=== PATIENT | male | born 1950 | race Caucasian/White ===

== ENCOUNTER 2019-12-20 12:47 | Emergency (ER) | payer MEDICARE, MEDICAID ==
[~2019-12-20] VITALS: Ht 182.9 cm; Wt 63.6 kg
--- NOTE | 2019-12-20 13:16 | EKG ---
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
[2019-12-20 13:18] LABS: BASO # 0.1 x10^3/uL (0.0-0.2); BASO % 2 % (0-3); EOS # 0.1 x10^3/uL (0.0-0.7); EOS % 2 % (0-3); HEMATOCRIT 34.5 % (39.0-53.0); HEMOGLOBIN 11.7 g/dL (13.0-17.5); LYMPH # 0.6 x10^3/uL (1.0-4.8); LYMPH % 13 % (24-48); MEAN CORPUSCULAR HEMOGLOBIN 34 pg (25-35); MEAN CORPUSCULAR HGB CONC 34 g/dL (31-37); MEAN CORPUSCULAR VOLUME 99 fL (79-100); MONO # 0.6 x10^3/uL (0.0-1.1); MONO % 15 % (0-9); NEUT # 2.8 x10^3uL (1.8-7.7); NEUT % 68 % (31-73); PLATELET COUNT 88 x10^3/uL (140-400); RED BLOOD COUNT 3.49 x10^6/uL (4.30-5.70); WHITE BLOOD COUNT 4.2 x10^3/uL (4.0-11.0)
--- NOTE | 2019-12-20 13:19 | RAD ---
CT head and cervical spine without contrast History: Fall Technique: Noncontrast CT imaging was performed of the head and cervical spine. Multiplanar reconstruction images are submitted. Exposure: One or more of the following individualized dose reduction techniques were utilized for this examination: 1. Automated exposure control 2. Adjustment of the mA and/or kV according to patient size 3. Use of iterative reconstruction technique. Head CT Comparison: None Findings: There is motion degradation. There is some asymmetric hyperdensity of the right basal ganglia about 0.6 cm in size. There is focus of lower density extending near the cortical surface of the right parasagittal parietal occipital lobes. There is also area of lower density of the left temporal lobe. Ventricular size is considered within normal limits. Visualized paranasal sinuses are aerated. Mastoid air cells are aerated. No acute calvarial abnormality is identified. Impression: 1. Small focus of hyperdensity of the right basal ganglia is favored to be due to asymmetric calcification rather than hemorrhage although could be followed up to assess stability. There is focus of lower density extending to the cortical surface of the right parietal occipital lobes, subacute infarct possible although could be chronic, better assessed with MRI or short-term follow-up CT. There is also focus of lower density of the left temporal lobe, possibly chronic versus late subacute infarct. Cervical spine CT Comparison: None Findings: No acute cervical spine fracture is identified. Cervical vertebral body stature is overall maintained. There is superior endplate concavity of T2 without osseous retropulsion, difficult to accurately determine age although favored to be older. There is accentuation of lordotic curvature cervical spine. There are minimal disc osteophyte complexes greatest C5-6 and C6-7. There is moderate to severe degenerative disc disease greater posteriorly C4-5 through C6-7 and to lesser degree at C3-4 and C2-3. There is likely borderline central canal stenosis about 10 mm at C5-6. There is multilevel cervical facet degenerative change, also degree of uncovertebral degenerative change. There is moderate to severe narrowing of the right C4-5 and C6-7 neural foramina, severe narrowing on the right at C5-6, also moderate to severe narrowing on the left at C5-6 and C6-7. There is mild levoscoliosis. There is small nonspecific lytic focus of the right C5 vertebral body about 0.4 cm otherwise too small to accurately characterize. There is atherosclerotic calcification of the left carotid artery in the neck. Impression: 1. No acute cervical spine fracture is identified. 2. There is multilevel degenerative disc disease. There is spondylosis greatest at C5-6 and C6-7. 3. There is multilevel cervical neural foramina compromise due to facet and uncovertebral degenerative change. Critical results were discussed with Dr. Roberts at 12/20/2019 1:13 PM. Electronically signed by: Leif Gibbs MD (12/20/2019 1:16 PM) [id number]
[2019-12-20 13:28] LABS: CALCIUM 8.8 mg/dL (8.5-10.1); CREATININE 0.9 mg/dL (0.7-1.3); GFR 83.4; POTASSIUM 3.3 mmol/L (3.5-5.1)
--- NOTE | 2019-12-20 13:31 | PHYS DOC ---
Past History Past Medical History: A-Fib, CVA, Liver Disease, Other Additional Past Medical Histor: esophageal bleed; prostate disease Additional Past Surgical Histo: to stop esophageal bleed Alcohol Use: Sober Additional Alcohol Information: no drink for 5 yrs General Adult EDM: Chief Complaint: HEAD INJURY/TRAUMA HPI: HPI: 69-year-old male presents after syncope and fall. The patient was shopping at [employer] he tells me he started the feel dizzy and he not exactly sure what happened after that. He was unaware that he became completely unconscious. He was a little fuzzy on his first memory when he woke up. He was noted to be repeating himself and not making a lot of sense when he first woke up. They were concerned about hemorrhage or stroke so EMS was called. EMS gave a similar report that he was repeating himself and not fully answering their questions. He was able to speak without difficulty. He was put in cervical precautions and brought to the emergency room. At this time, he denies any pain. He is quite chatty but appropriate. He denies fever chills. History of atrial fibrillation. Review of Systems: Review of Systems: Constitutional: Denies fever or chills Eyes: Denies change in visual acuity HENT: Denies nasal congestion or sore throat Respiratory: Denies cough or shortness of breath Cardiovascular: Denies chest pain or edema GI: Denies abdominal pain, nausea, vomiting, bloody stools or diarrhea : Denies dysuria Musculoskeletal: Denies back pain or joint pain Integument: Denies rash Neurologic: Head trauma. Denies headache, focal weakness or sensory changes Endocrine: Denies polyuria or polydipsia Lymphatic: Denies swollen glands Psychiatric: Denies depression or anxiety Heart Score: Risk Factors: Risk Factors: DM, Current or recent (<one month) smoker, HTN, HLP, family history of CAD, obesity. Risk Scores: Score 0 - 3: 2.5% MACE over next 6 weeks - Discharge Home Score 4 - 6: 20.3% MACE over next 6 weeks - Admit for Clinical Observation Score 7 - 10: 72.7% MACE over next 6 weeks - Early Invasive Strategies Allergies: Allergies: Allergies Coded Allergies Type Severity Reaction Last Updated Verified No Known Drug Allergies 12/20/19 No Physical Exam: PE: Constitutional: Well developed, well nourished, no acute distress, non-toxic appearance. [] HENT: Normocephalic, atraumatic, bilateral external ears normal, oropharynx moist, no oral exudates, nose normal. [] Eyes: PERRLA, EOMI, conjunctiva normal, no discharge. [] Neck: In a cervical collar, no tenderness [] Cardiovascular: Heart rate 115, regular rhythm, no murmur [] Lungs & Thorax: Bilateral breath sounds clear to auscultation [] Abdomen: Bowel sounds normal, soft, no tenderness, no masses, no pulsatile ma sses. [] Skin: Warm, dry, no erythema, no rash. [] Back: No tenderness, no CVA tenderness. [] Extremities: No tenderness, no cyanosis, no clubbing, ROM intact, no edema. [] Neurologic: Alert and oriented X 3, normal motor function, normal sensory function, no focal deficits noted. [] Psychologic: Affect normal, judgement normal, mood normal. [] Current Patient Data: Labs: Laboratory Tests Test 12/20/19 12:57 12/20/19 13:04 Glucose (Fingerstick) 81 mg/dL (70-99) White Blood Count 4.2 x10^3/uL (4.0-11.0) Red Blood Count 3.49 x10^6/uL (4.30-5.70) L Hemoglobin 11.7 g/dL (13.0-17.5) L Hematocrit 34.5 % (39.0-53.0) L Mean Corpuscular Volume 99 fL (79-100) Mean Corpuscular Hemoglobin 34 pg (25-35) Mean Corpuscular Hemoglobin Concent 34 g/dL (31-37) Red Cell Distribution Width 14.0 % (11.5-14.5) Platelet Count 88 x10^3/uL (140-400) L Neutrophils (%) (Auto) 68 % (31-73) Lymphocytes (%) (Auto) 13 % (24-48) L Monocytes (%) (Auto) 15 % (0-9) H Eosinophils (%) (Auto) 2 % (0-3) Basophils (%) (Auto) 2 % (0-3) Neutrophils # (Auto) 2.8 x10^3uL (1.8-7.7) Lymphocytes # (Auto) 0.6 x10^3/uL (1.0-4.8) L Monocytes # (Auto) 0.6 x10^3/uL (0.0-1.1) Eosinophils # (Auto) 0.1 x10^3/uL (0.0-0.7) Basophils # (Auto) 0.1 x10^3/uL (0.0-0.2) Vital Signs: Vital Signs Date Time Temp Pulse Resp B/P (MAP) Pulse Ox O2 Delivery O2 Flow Rate FiO2 12/20/19 13:23 119 17 136/89 (105) 97 Room Air 12/20/19 12:56 97.5 EKG: EKG: Sinus tachycardia, rate 109, normal axis, no ST elevations or depressions. [] Radiology/Procedures: Radiology/Procedures: [] Impressions: CT head and cervical spine without contrast History: Fall Technique: Noncontrast CT imaging was performed of the head and cervical spine. Multiplanar reconstruction images are submitted. Exposure: One or more of the following individualized dose reduction techniques were utilized for this examination: 1. Automated exposure control 2. Adjustment of the mA and/or kV according to patient size 3. Use of iterative reconstruction technique. Head CT Comparison: None Findings: There is motion degradation. There is some asymmetric hyperdensity of the right basal ganglia about 0.6 cm in size. There is focus of lower density extending near the cortical surface of the right parasagittal parietal occipital lobes. There is also area of lower density of the left temporal lobe. Ventricular size is considered within normal limits. Visualized paranasal sinuses are aerated. Mastoid air cells are aerated. No acute calvarial abnormality is identified. Impression: 1. Small focus of hyperdensity of the right basal ganglia is favored to be due to asymmetric calcification rather than hemorrhage although could be followed up to assess stability. There is focus of lower density extending to the cortical surface of the right parietal occipital lobes, subacute infarct possible although could be chronic, better assessed with MRI or short-term follow-up CT. There is also focus of lower density of the left temporal lobe, possibly chronic versus late subacute infarct. Cervical spine CT Comparison: None Findings: No acute cervical spine fracture is identified. Cervical vertebral body stature is overall maintained. There is superior endplate concavity of T2 without osseous retropulsion, difficult to accurately determine age although favored to be older. There is accentuation of lordotic curvature cervical spine. There are minimal disc osteophyte complexes greatest C5-6 and C6-7. There is moderate to severe degenerative disc disease greater posteriorly C4-5 through C6-7 and to lesser degree at C3-4 and C2-3. There is likely borderline central canal stenosis about 10 mm at C5-6. There is multilevel cervical facet degenerative change, also degree of uncovertebral degenerative change. There is moderate to severe narrowing of the right C4-5 and C6-7 neural foramina, severe narrowing on the right at C5-6, also moderate to severe narrowing on the left at C5-6 and C6-7. There is mild levoscoliosis. There is small nonspecific lytic focus of the right C5 vertebral body about 0.4 cm otherwise too small to accurately characterize. There is atherosclerotic calcification of the left carotid artery in the neck. Impression: 1. No acute cervical spine fracture is identified. 2. There is multilevel degenerative disc disease. There is spondylosis greatest at C5-6 and C6-7. 3. There is multilevel cervical neural foramina compromise due to facet and uncovertebral degenerative change. Critical results were discussed with Dr. Rivas at 12/20/2019 1:13 PM. Electronically signed by: El Antoine MD (12/20/2019 1:16 PM) [id number] DICTATED AND SIGNED BY: EL ANTOINE MD DATE: 12/20/19 1316 CC: CAMELIA RIVAS DO; PCP,NO ~ Course & Med Decision Making: Course & Med Decision Making Pertinent Labs and Imaging studies reviewed. (See chart for details) The patient's head CT has some significant findings but they may or may not be acute. See official report for more details. The patient is much more alert and well at this time. He is able to answer all of my questions without difficulty he is very talkative but appropriate. EKG has the appearance of A. fib however there are P waves for every beat. The patient's labs are unremarkable. His urinalysis is significant for urinary tract infection. I will treat him with a gram of Rocephin in the ED. I would like to admit the patient for interval follow-up of his CT and further observation. The patient has refused. He will stay for us to give him his antibiotics but he does not want to stay the night. I explained to him he will have to sign out AMA. That is his choice. After [id number] several times the patient has decided that [facility] and that [facility] will [facility] ambulance transport. I talked to Dr. Arteaga and he has accepted the patient for [facility]. He will go by ambulance. [] Olga Lidia Disclaimer: Olga Lidia Disclaimer: This electronic medical record was generated, in whole or in part, using a voice recognition dictation system. Departure Departure: Impression: Primary Impression: Closed head injury Additional Impression: Concussion Disposition: XFER SHT-TRM HOSP Condition: STABLE Referrals: PCP,NO (PCP) Scripts Cephalexin (KEFLEX) 500 Mg Capsule 1 CAP PO TID for UTI for 7 Days, #21 CAP 0 Refills Prov: CAMELIA RIVAS DO 12/20/19 Justification of Admission: Justification of Admission: Justification of Admission Dx: N/A CAMELIA RIVAS DO Dec 20, 2019 13:31
[2019-12-20 13:38] LABS: PLT ESTIMATE DECREASED (ADEQUATE)
[2019-12-20 13:40] LABS: ALBUMIN 3.2 g/dL (3.4-5.0); ALBUMIN/GLOBULIN RATIO 0.7 (1.0-1.7); TOTAL BILIRUBIN 1.4 mg/dL (0.2-1.0); TOTAL PROTEIN 7.7 g/dL (6.4-8.2)
--- NOTE | 2019-12-20 13:45 | RAD ---
EXAM: Chest, single view. HISTORY: Syncope. COMPARISON: None. FINDINGS: A frontal view of the chest is obtained. There is diffuse increased interstitial opacity. There is no consolidation, pleural effusion or pneumothorax. The heart is normal in size. There are healed rib fractures. IMPRESSION: Diffuse increased interstitial opacity due to interstitial infiltrate or chronic interstitial changes. Electronically signed by: Anjelica Astudillo MD (12/20/2019 1:42 PM) [id number]
[2019-12-20 14:30] LABS: BILIRUBIN,URINE NEG (NEG); CLARITY,URINE CLOUDY; COLOR,URINE YELLOW; GLUCOSE,URINE NEG (NEG)
[2019-12-20 14:31] LABS: NITRITE,URINE POS (NEG); UROBILINOGEN,URINE 0.2 mg/dL (0.2 mg/dL)
[2019-12-20 14:33] LABS: BACTERIA,URINE MANY /HPF (0-FEW); RBC,URINE OCC /HPF (0-2); SQUAMOUS EPITHELIAL CELL,UR OCC /LPF; WBC,URINE >40 /HPF (0-4)
[2019-12-20] MEDS ORDERED: IV NORMAL SALINE 50ML 50 ML ONE (14:46)
[2019-12-20] MEDS ORDERED: cefTRIAXone SODIUM 1 GM VIAL ONE (14:46)
[2019-12-20] MEDS ORDERED: CEPH-264 PO (14:56)
[2019-12-20 18:22] VITALS: BP 122/84
== END 2019-12-20 18:45 | disposition short-term general hospital (02) ==
LOC: ER 12:47
DX: S06.0X0A Concussion without loss of consciousness, initial encounter (principal); I48.91 Unspecified atrial fibrillation; Z86.73 Personal history of transient ischemic attack (TIA), and cerebral infarction without residual deficits; W18.39XA Other fall on same level, initial encounter; Y93.89 Activity, other specified; Y92.59 Other trade areas as the place of occurrence of the external cause; Y99.8 Other external cause status
CPT/HCPCS: 36415; 70450; 71045; 72125; 80053; 81001; 82947; 83880; 84484; 85025; 87086; 93005; 96365; 99285; J0696